=== PATIENT | male | born 1985 | race Caucasian/White ===

== ENCOUNTER 2016-08-07 23:07 | Emergency (ER) | payer OTHER ==
--- NOTE | ~2016-08-07 | CR142 ---
[facility] A Service of [facility] & [facility] RADIOLOGY TEXT RESULTS PATIENT: ORIN SIEGEL LOCATION: CFTX : 89 UNIT #: [id number] AGE: [address]: Emelia Vargas APRN SEX: M ORDER DR: [id number] [facility] [address] [place], [place] [address] [id number] E MR#: [id number] Acc #: [id number] NAME: ORIN SIEGEL : 1985 SEX: M STUDY DATE/TIME: 08/07/2016 23:53 UNIT: [facility] ROOM: STUDY DESCRIPTION: CR Hand Min 3 Views Rt Attending Physician: Emelia Vargas A.P.R.N. Ordering Physician: Ed Doctor [id number] [facility] Primary Care Physician: Primary Care Physician No MEDICAL IMAGING REPORT This report is preliminary unless electronic signature is present EXAM Right hand, 08/07 at 23:53 INDICATION Hand pain after fall playing ball today. COMPARISON 01/25/2016 FINDINGS Three views of the right hand were obtained. There is soft tissue swelling over the dorsum of the hand. No fracture or malalignment is seen. The hand is otherwise normal. IMPRESSION Soft tissue swelling in the dorsum of the hand, otherwise negative. Dictated by... Haile Chavez Jr., M.D. THIS IS AN ELECTRONICALLY VERIFIED REPORT Haile Chavez Jr., M.D. at 08/08/2016 9:52 PM JOSETTE/yanelis TD: 08/08/2016 07:57 JOB #: [id number] MEDICAL IMAGING REPORT Page 1 of 1 COPY
--- NOTE | ~2016-08-07 | CR172 ---
[facility] A Service of [facility] & [facility] RADIOLOGY TEXT RESULTS PATIENT: ORIN SIEGEL LOCATION: CFTX : 89 UNIT #: [id number] AGE: [address]: Emelia Vargas APRN SEX: M ORDER DR: [id number] [facility] [address] [place], [place] [address] [id number] E MR#: [id number] Acc #: [id number] NAME: ORIN SIEGEL : 1985 SEX: M STUDY DATE/TIME: 08/07/2016 23:55 UNIT: [facility] ROOM: STUDY DESCRIPTION: CR Knee 3 Views Lt Attending Physician: Emelia Vargas A.P.R.N. Ordering Physician: Ed Doctor [id number] [facility] Primary Care Physician: Primary Care Physician No MEDICAL IMAGING REPORT This report is preliminary unless electronic signature is present EXAM Left knee, 08/07 at 23:55 INDICATION Knee pain and abrasion after fall playing ball today. FINDINGS Three views of the left knee were obtained. No fracture or malalignment is seen. There is no joint effusion. The soft tissues are unremarkable. IMPRESSION Normal left knee. Dictated by... Haile Chavez Jr., M.D. THIS IS AN ELECTRONICALLY VERIFIED REPORT Haile Chavez Jr., M.D. at 08/08/2016 9:52 PM JOSETTE/yanelis TD: 08/08/2016 07:59 JOB #: [id number] MEDICAL IMAGING REPORT Page 1 of 1 COPY
== END 2016-08-08 00:55 | disposition home or self-care (01) ==
LOC: CED 23:07 → CFTX 23:07
DX: S60.221A Contusion of right hand, initial encounter (principal); F17.210 Nicotine dependence, cigarettes, uncomplicated; W18.30XA Fall on same level, unspecified, initial encounter; Y93.67 Activity, basketball; Y92.9 Unspecified place or not applicable
CPT/HCPCS: 29280; 29530; 73130; 73562; 96372; 99283; J1885